=== PATIENT | male | born 1955 | race Caucasian/White ===

== ENCOUNTER 2016-09-03 20:52 | Emergency (ER) | payer OTHER ==
[2016-09-03] MEDS ORDERED: AMIODARONE HCL INJ 150 MG/3 ML VIAL IV ONE ×2 (21:00→21:03)
[2016-09-03] MEDS ORDERED: AMIODARONE HCL 150 MG in DEXTROSE 5%-WATER 100 ML IV ONE (21:16)
[2016-09-03] MEDS ORDERED: DEXTROSE 5%-WATER 500 ML with AMIODARONE HCL 900 MG IV PRN ×2 (21:16)
[2016-09-03] MEDS ORDERED: ASPIRIN 81 MG TABLET, CHEWABLE PO ONE (21:17)
[2016-09-03 21:29] LABS: ABSOLUTE BASOPHILS # (AUTO) 0.1 10^3/uL (0.0-0.2); ABSOLUTE EOSINOPHILS # (AUTO) 0.3 10^3/uL (0.0-0.6); ABSOLUTE LYMPHOCYTES (AUTO) 1.3 10^3/uL (0.5-4.7); ABSOLUTE MONOCYTES (AUTO) 0.7 10^3/uL (0.1-1.4); ABSOLUTE NEUT (AUTO) 4.9 10^3/uL (1.7-8.2); BASOPHILS % (AUTO) 1.3 % (0-2); EOSINOPHILS % (AUTO) 3.4 % (0-6); HEMATOCRIT 43.6 % (37.9-51.0); HEMOGLOBIN 14.4 g/dL (13.5-17.0); HGB HCT DIFFERENCE -0.4; LYMPHOCYTES % (AUTO) 18.4 % (13-45); MEAN CORPUSCULAR HEMOGLOBIN 27.1 pg (27.0-33.4); MEAN CORPUSCULAR VOLUME 82 fl (80-97); MONOCYTES % (AUTO) 9.5 % (3-13); RED BLOOD COUNT 5.31 10^6/uL (4.35-5.55); SEGMENTED NEUTROPHILS % (AUTO) 67.4 % (42-78); WHITE BLOOD COUNT 7.3 10^3/uL (4.0-10.5)
--- NOTE | 2016-09-03 21:29 | ER Document Report ---
ED General - General Stated Complaint: CHEST PAIN Notes: Patient is a 61-year-old male with past medical history of coronary artery disease with a 4 vessel CABG 5 years ago, history of atrial fibrillation status post ablation who presents with an acute episode of ventricular tachycardia as reported by EMS and demonstrated on rhythm strips. Patient states that he was sitting on his couch when he suddenly began to feel palpitations. He had associated lightheadedness and shortness of breath. States that he stood up and tried walking to the kitchen which caused him to syncopized. He then had an episode of vomiting. EMS attempted to cardiovert the patient with IV lidocaine and adenosine without success. He was then cardioverted successfully. At time of arrival patient denies any complaints and states that he feels "pretty good". States he had complete resolution of symptoms after cardioversion. Denies any chest pain, shortness of breath. No history of similar symptoms in the past. - Related Data Allergies/Adverse Reactions: No Known Allergies Allergy (Unverified 09/03/16 21:57) Past Medical History - General Information source: Patient - Social History Smoking Status: Never Smoker Frequency of alcohol use: None Drug Abuse: None Lives with: Spouse/Significant other Family History: Reviewed & Not Pertinent Review of Systems - Review of Systems Notes: Constitutional: Negative for fever. HENT: Negative for sore throat. Eyes: Negative for visual changes. Cardiovascular: Negative for chest pain. Positive for syncope Respiratory: Positive for shortness of breath. Gastrointestinal: Negative for abdominal pain, positive for an episode of vomiting Genitourinary: Negative for dysuria. Musculoskeletal: Negative for back pain. Skin: Negative for rash. Neurological: Negative for headaches, weakness or numbness. 10 point ROS negative except as marked above and in HPI. Physical Exam - Vital signs Vitals: Resp Pulse Ox 25 H 100 09/03/16 20:55 09/03/16 20:55 Interpretation: Tachycardic, Tachypneic Notes: PHYSICAL EXAMINATION: GENERAL: Well-appearing, well-nourished and in no acute distress. HEAD: Atraumatic, normocephalic. EYES: Pupils equal round and reactive to light, extraocular movements intact, sclera anicteric, conjunctiva are normal. ENT: nares patent, oropharynx clear without exudates. Moist mucous membranes. NECK: Normal range of motion, supple without lymphadenopathy LUNGS: Breath sounds clear to auscultation bilaterally and equal. No wheezes rales or rhonchi. HEART: Regular tachycardia without murmurs ABDOMEN: Soft, nontender, normoactive bowel sounds. No guarding, no rebound. No masses appreciated. EXTREMITIES: Normal range of motion, no pitting or edema. No cyanosis. NEUROLOGICAL: No focal neurological deficits. Moves all extremities spontaneously and on command. PSYCH: Normal mood, normal affect. SKIN: Warm, Dry, normal turgor, no rashes or lesions noted. Course - Re-evaluation Re-evalutation: 09/03/16 21:25 Patient arrives after having ventricular tachycardia with associated syncope, vomiting, and shortness of breath just prior to arrival. This was confirmed on telemetry strips from EMS. He was cardioverted prior to arrival with successful conversion. At time of arrival he has sinus tachycardia but his EKG does not show any acute ischemic changes or ongoing ventricular tachycardia. Patient is overall nontoxic in appearance. He is denying any ongoing symptoms at this time. He will start on an amiodarone infusion given the episode of ventricular tachycardia prior to arrival. He will require frequent reassessments as I am concerned about ischemia as the etiology of his presentation as well as recurrence of possible ventricular tachycardia. 09/03/16 22:20 Patient remains asymptomatic, tachycardia has now resolved. Amiodarone infusion ongoing. I have consulted with , our food science technician, who agrees patient cannot stay at this hospital and requires transfer to a hospital with . I will contact [facility] where patient had his prior ablation. 09/03/16 23:35 Patient continues to be asymptomatic. He has a bed at [facility]. The accepting physician is Dr. Vikash Casanova. - Vital Signs Vital signs: Temp Pulse Resp BP Pulse Ox 26 H 105/73 97 09/04/16 00:16 09/04/16 00:16 09/04/16 00:16 - Laboratory Result Diagrams: 09/03/16 21:02 09/03/16 21:02 Laboratory results interpreted by me: 09/03/16 09/03/16 09/03/16 21:02 21:02 21:02 RDW 15.0 H BUN 26 H Glucose 213 H POC Glucose 217 H - Diagnostic Test Radiology reviewed: Image reviewed, Reports reviewed Radiology results interpreted by me: 09/04/16 04:20 Chest x-ray: No acute infiltrate or widened mediastinum - EKG Interpretation by Me Additional EKG results interpreted by me: 09/03/16 21:28 Sinus tachycardia. Rate 107. No ST elevations or depressions. QTC is 443. Critical Care Note - Critical Care Note Total time excluding time spent on procedures (mins): 35 Comments: Critical care time spent obtaining history from patient or surrogate, discussions with consultants, development of treatment plan with patient or surrogate, evaluation of patient's response to treatment, examination of patient , ordering and performing treatments and interventions, ordering and review of laboratory studies, re-evaluation of patient's condition, ordering and review of radiographic studies and review of old charts Discharge - Discharge Clinical Impression: Ventricular tachycardia Syncope Qualifiers: Syncope type: unspecified Qualified Code(s): R55 - Syncope and collapse Condition: Fair Disposition: [facility]
[2016-09-03 21:33] LABS: ANION GAP 14 (5-19); BLOOD UREA NITROGEN 26 mg/dL (7-20); CALCIUM 9.6 mg/dL (8.4-10.2); CARBON DIOXIDE 22 mmol/L (22-30); CHLORIDE 104 mmol/L (98-107); CREATININE RESULT 0.76 mg/dL (0.52-1.25); GLUCOSE 213 mg/dL (75-110); POTASSIUM 4.1 mmol/L (3.6-5.0); SODIUM 140.3 mmol/L (137-145)
[2016-09-04 00:39] VITALS: BP 105/73
--- NOTE | 2016-09-04 11:02 | EKG REPORT ---
SEVERITY:- ABNORMAL ECG - SINUS TACHYCARDIA LEFT ANTERIOR FASCICULAR BLOCK ANTEROLATERAL INFARCT, AGE INDETERMINATE : Confirmed by: Bessie Sargent 04-Sep-2016 11:01:25
== END 2016-09-04 00:48 | disposition short-term general hospital (02) ==
LOC: ER 20:52
DX: I47.2 Ventricular tachycardia (principal); R55 Syncope and collapse; R07.9 Chest pain, unspecified; I25.10 Atherosclerotic heart disease of native coronary artery without angina pectoris; R06.02 Shortness of breath; R11.10 Vomiting, unspecified; Z95.1 Presence of aortocoronary bypass graft
CPT/HCPCS: 93005; 96376; 99291; 96365; 96366; 36415; 82962; 85025; 80048; 84484; 71010; 93010; J7060; J0282